=== PATIENT | female | born 1980 | race Caucasian/White ===

== ENCOUNTER 2018-02-17 12:28 | Outpatient (REF) | payer OTHER, SELFPAY ==
[2018-02-17 22:32] LABS: Anion Gap 10.1 mmol/L (3-11); BUN 13 mg/dL (7-18); CO2 25.9 mmol/L (21.0-32.0); CREATININE 0.73 mg/dL (0.55-1.02); Chloride 104 mmol/L (98-107); Glucose 62 mg/dL (70-100); Potassium 4.3 mmol/L (3.5-5.1); Sodium 140 mmol/L (136-145)
== END 2018-02-17 12:48 ==
LOC: NCHCN 12:28
PROVIDERS: Visit Provider Nurse Practitioner Family
DX: Z00.00 Encounter for general adult medical examination without abnormal findings (principal); F41.8 Other specified anxiety disorders; R20.2 Paresthesia of skin; F90.0 Attention-deficit hyperactivity disorder, predominantly inattentive type; M54.2 Cervicalgia; H91.90 Unspecified hearing loss, unspecified ear
CPT/HCPCS: 80048

== ENCOUNTER 2021-01-05 12:41 | Outpatient (REF) | payer BC, SELFPAY ==
[2021-01-05 14:36] LABS: Abs Immature Grans 0.01 10^3/uL (0.0-0.06); Absolute Basophil Count 0.03 10^3/uL (0.0-0.2); Absolute Eosinophil Count 0.13 10^3/uL (0.0-0.7); Absolute Lymphocyte Count 1.61 10^3/uL (1.2-3.4); Absolute Monocyte Count 0.44 10^3/uL (0.1-0.8); Basophils % 0.5; Eosinophils % 2.2; HCT 43.3 % (36.0-46.0); HGB 14.4 g/dL (11.2-15.7); Immature Grans % 0.2; Lymphocytes % 27.2; MCH 30.5 pg (27.0-33.0); MCHC 33.3 % (32.0-36.0); MCV 91.7 fL (80-95); MPV 9.6 fL (8.0-11.0); Monocytes % 7.4; Neutrophils % 62.5; Nucleated RBC 0 %; Platelet Count 274 10^3/uL (130-400); RBC 4.72 10^6/uL (3.93-5.22); RDW 11.7 % (11.7-14.6); RDW-SD 39.3 fL; WBC 5.92 10^3/uL (4.4-10.8)
[2021-01-05 15:09] LABS: Iron 84 ug/dL (50-170); Total Iron Binding Capacity 341 ug/dL (250-450); Transferrin Sat 25 % (15-50)
[2021-01-05 15:22] LABS: ALT 23 U/L (14-59); AST 16 U/L (15-37); Albumin 4.3 g/dL (3.4-5.0); Alkaline Phosphatase 53 U/L (46-116); Anion Gap 9.3 mmol/L (3-11); BUN 13 mg/dL (7-18); Bilirubin, Total 0.4 mg/dL (0.2-1.0); CO2 26.7 mmol/L (21.0-32.0); CREATININE 0.9 mg/dL (0.55-1.02); Calcium 9.3 mg/dL (8.5-10.1); Chloride 105 mmol/L (98-107); Ferritin 18 ng/mL (8-252); Glucose 80 mg/dL (74-106); Potassium 4.2 mmol/L (3.5-5.1); Sodium 141 mmol/L (136-145); TSH (W/Ref FT4) 2.07 uIU/mL (0.36-3.74); Total Protein 7.2 g/dL (6.4-8.2); Vitamin B12 425 pg/mL (193-986)
[2021-01-06 10:08] LABS: Lyme Ab w Rflx to Lyme Confirm Negative (Negative)
[2021-01-06 22:31] LABS: Anaplasma phagocytophilum Negative (Negative); B. miyamotoi PCR Negative (Negative); Babesia divergens/MO-1 Negative (Negative); Babesia duncani Negative (Negative); Babesia microti Negative (Negative); Ehrlichia chaffeensis Negative (Negative); Ehrlichia ewingii/canis Negative (Negative); Ehrlichia muris eauclairensis Negative (Negative)
== END 2021-01-05 12:42 | disposition home or self-care (01) ==
LOC: NCHCN 12:41
PROVIDERS: Visit Provider Nurse Practitioner Family
DX: R53.83 Other fatigue (principal); M54.2 Cervicalgia; F41.8 Other specified anxiety disorders; K30 Functional dyspepsia; J30.2 Other seasonal allergic rhinitis; E16.2 Hypoglycemia, unspecified; R20.2 Paresthesia of skin; F90.0 Attention-deficit hyperactivity disorder, predominantly inattentive type
CPT/HCPCS: 80053; 87798; 82607; 82728; 83540; 83550; 84443; 85025; 86618

== ENCOUNTER 2021-06-05 09:21 | Outpatient (REF) | payer BC, SELFPAY ==
--- NOTE | 2021-06-05 08:45 | PAPFT_PTH ---
PATIENT: Kait Carreon LOC: [facility]#:[id number] AGE/SX: 40/F ROOM: RE06/05/[address]: Cheryl Marte : 1980 BED: DIS: 06/05/2021 SPEC #: [id number] RECD: 06/06/21 12:53 STATUS: CAROLINE REQ #: [id number] EMMANUEL: 06/05/21 08:[address]: Cheryl Marte DEPT: [facility] Cytology RECD BY: Shazia Gorman ENTERED: 06/06/21 12:54 SP TYPE: PAPFT OTHR DR: Gerri Lincoln Tissues: 1 - CX/ENDOCX FOR PAP SMEARS Procedures: PAP THIN PREP/UVM Screening HPV DNA PROBE Comments: [id number] (HPV 16 & 18/45)
== END 2021-06-05 09:22 | disposition home or self-care (01) ==
LOC: NCHCN 09:21
PROVIDERS: Visit Provider Nurse Practitioner Family
DX: Z00.00 Encounter for general adult medical examination without abnormal findings (principal); Z12.4 Encounter for screening for malignant neoplasm of cervix
CPT/HCPCS: 88142; 87624

== ENCOUNTER 2021-07-05 16:34 | Outpatient (REF) | payer BC, SELFPAY ==
--- NOTE | 2021-07-05 13:45 | ENDO_PTH ---
PATIENT: Kait Carreon LOC: [facility] U#:[id number] AGE/SX: 41/F ROOM: RE07/05/[address]: Katerina Arboleda DO : 1980 BED: DIS: 07/05/2021 SPEC #: [id number] RECD: 07/05/21 17:43 STATUS: CAROLINE REQ #: [id number] EMMANUEL: 07/05/21 13:[address]: Katerina Arboleda DEPT: Surgical Specimen RECD BY: Shazia Gorman ENTERED: 07/05/21 17:43 SP TYPE: Endo OTHR DR: Gerri Lincoln Tissues: 1 - ENDOCERVICAL BX/CURRETTE Procedures: GROSS AND MICRO LEVEL 4 Comments: [id number]
== END 2021-07-05 16:35 | disposition home or self-care (01) ==
LOC: LBN 16:34
PROVIDERS: PCP Nurse Practitioner Family; Visit Provider Obstetrics & Gynecology
DX: R87.810 Cervical high risk human papillomavirus (HPV) DNA test positive (principal); N88.8 Other specified noninflammatory disorders of cervix uteri
CPT/HCPCS: 88305

== ENCOUNTER 2022-07-18 06:14 | Day surgery (SDC) | payer OTHER, SELFPAY ==
[2022-07-18 06:34] VITALS: BP 110/71; PULSE 66; RESP 16; TEMP 36.8; O2SAT 97
--- NOTE | 2022-07-18 06:57 | W.ANESPRE ---
General Info Date of Service Date Performed: 07/18/22 Height: 5 ft 8 in Weight: 74.4 kg Body Mass Index (BMI): 24.9 Surgical Procedure: Operation Date: 07/18/22 07:40 Proposed Procedure Side Surgeon p Wrist ECTR Right Alirio Hassan MD Meds Allergies and Home Medications Allergies Allergy/AdvReac Type Severity Reaction Status Date / Time amoxicillin Allergy Mild Verified 07/18/22 06:42 penicillin V Allergy Mild Verified 07/18/22 06:42 Home Medication Medication Instructions Recorded cetirizine 10 mg capsule (Zyrtec) 10 mg PO DAILY 07/15/17 methylphenidate HCl 20 mg biphasic 20 mg PO DAILY 07/15/17 50-50 capsule,extended release bupropion HCl 150 mg tablet,12 hr 150 mg PO DAILY 07/05/21 sustained-release (Wellbutrin SR) acetylcysteine 600 mg tablet (NAC) 600 mg PO BID 05/02/22 omeprazole 20 mg capsule,delayed 20 mg PO DAILY 05/02/22 release cyclobenzaprine 5 mg tablet 5 mg PO TID PRN 05/09/22 fluticasone propionate 50 100 mcg NS DAILY PRN nasal 05/09/22 mcg/actuation nasal congestion spray,suspension acetaminophen 500 mg tablet 1,000 mg PO TID #90 tabs 07/18/22 hydrocodone 5 mg-acetaminophen 325 1 tab PO Q6H PRN pain #4 tabs 07/18/22 mg tablet ibuprofen 600 mg tablet 600 mg PO TID PRN pain #90 tabs 07/18/22 Current Visit Medications: Current Medications Generic Name Dose Route Start Last Admin Trade Name Freq PRN Reason Stop Dose Admin Ringer's Solution 1,000 mls @ 80 mls/hr 07/18/22 06:00 IV 07/18/22 23:59 INFUSION BHAVIK Cefazolin Sodium/Dextrose 2 gm in 50 mls @ 100 mls/hr 07/18/22 06:00 Ancef Duplex IVPB 07/18/22 23:59 PREOP BHAVIK IV Miscellaneous Supplies 1 each 07/18/22 06:00 Iv Access IV 07/18/22 23:59 DIRECTED BHAVIK Sodium Chloride 0 ml 07/18/22 06:00 Normal Saline Flush 10 Ml Syr IV 07/18/22 23:59 PRN PRN Sodium Chloride 0 ml 07/18/22 06:00 Normal Saline 10 Ml Vial IJ 07/18/22 23:59 DIRECTED PRN Sterile Water 0 ml 07/18/22 06:00 Water,Injection,Sterile 10 Ml Vial IJ 07/18/22 23:59 DIRECTED PRN PFSH Active Problems Active Problems: Problem Status Onset Code Cervical high risk human papillomavirus (HPV) DNA test positive R87.810 Vulvar irritation N90.89 Right carpal tunnel syndrome G56.01 Left carpal tunnel syndrome G56.02 Medical History Medical History Acute stress disorder ADD (attention deficit disorder) Anxiety Anxiety with depression Attention deficit disorder predominant inattentive type Carpal tunnel syndrome Dental caries Depression Dyspepsia Eye muscle twitches Fatigue Hearing loss History of HPV infection History of neck pain Hx of traumatic brain injury Per pt states it was a concussion 2019. Hypoglycemia Multiple joint pain Neck pain Seasonal allergies Stress incontinence Tobacco Smoking/Tobacco Use Status: Never Alcohol Alcohol Intake: current Alcohol intake frequency: 0-2 drinks per day Details: says she hasn't drank in 3 weeks ago Substance Use Substance use: Never Substance use type: does not use Prental History History 0 Para Hx # Term Pregnancies Multiple births Hx # Pregnancies Ectopic pregnancies AB induced Hx Number of Living Children AB spontaneous Vital Signs and Lab Results Vital Signs Most Recent Vital Signs in EMR: Most Recent Vital Signs Temp Pulse Resp BP Pulse Ox 36.8 C 66 16 110/71 97 07/18/22 06:34 07/18/22 06:34 07/18/22 06:34 07/18/22 06:34 07/18/22 06:34 Point of Care Results Point of Care Results: POC- Test(urine) Negative 07/18/22 06:49 Lab Results Blood Type / Crossmatch: No Data to Display Complete Blood Count: No Data to Display Complete Metabolic Panel: No Data to Display Liver Function Panel: No Data to Display Coagulation Panel: No Data to Display Cardiac Panel: No Data to Display Arterial Blood Gas: No Data to Display Venous Blood Gas: No Data to Display Pancreas Panel: No Data to Display Thyroid Panel: No Data to Display Infectious Disease: No Data to Display Blood Cultures: No Data to Display Toxicology Panel: No Data to Display Panel: No Data to Display Anesthesia Assessment and Plan Anesthesia History Personal History: No History of Anesthesia Complications Family History: Family History Unknown Exercise Tolerance Exercise Tolerance: Metabolic Equivalents>4 Pertinent Negatives Pertinent Negatives: No Symptoms of GERD, No Major Cardiovascular Symptoms or Complaints and No Major Pulmonary Symptoms or Complaints Cardiac & Pulmonary Exam Cardiac Exam: Normal S1/S2 Heart Sounds Pulmonary Exam: Clear Bilateral Breath Sounds Implantable Cardiac Device Does patient have a Pacemaker or an ICD?: No Airway Exam Known Difficult Airway: No Mallampati Class: 1 Mouth Opening: Normal (> 3cm) Thyromental Distance: Greater than 3 cm Neck Range of Motion: Full ROM Neck Circumference: Normal Teeth Condition: Normal Dentition ASA Classification ASA Score: ASA 2 Emergency Case?: No NPO Status NPO Status: NPO Clears >2 hours, Solids >8 hours Status Status: Negative HCG Anesthesia Plan Resuscitation Status: Full Code Anesthesia Technique: General Anesthesia Airway Planned: Natural Airway Monitors Used: Standard Monitors
--- NOTE | 2022-07-18 07:12 | PDOC.DSDIS_ITS ---
Date of service: 07/18/22 Time of Service: 07:12 Discharge Plan Disposition Patient Disposition: Home Condition: Good Discharge Details Reason For Visit: R ECTR Attending Provider: Alirio Hassan Primary Care Provider: Cheryl Marte Home Meds and New Rx's Prescriptions: New acetaminophen 500 mg tablet 1,000 mg PO TID Qty: 90 0RF hydrocodone-acetaminophen 5-325 mg tablet 1 tab PO Q6H PRN (Reason: pain) Qty: 4 0RF ibuprofen 600 mg tablet 600 mg PO TID PRN (Reason: pain) Qty: 90 0RF Continued bupropion HCl [Wellbutrin SR] 150 mg tablet sustained-release 12 hr 150 mg PO DAILY methylphenidate HCl 20 MG capsule,ER biphasic 50-50 20 mg PO DAILY Zyrtec 10 MG capsule 10 mg PO DAILY omeprazole 20 mg capsule,delayed release(DR/EC) 20 mg PO DAILY NAC 600 mg tablet 600 mg PO BID cyclobenzaprine 5 mg tablet 5 mg PO TID PRN fluticasone propionate 50 mcg/actuation spray,suspension 100 mcg NS DAILY PRN (Reason: nasal congestion) Discharge Instructions Stand Alone Forms: Mo Hyman Tunnel Release Referrals: Alirio Hassan MD [ [facility] STAFF PHYSICIAN] - Activity:: Activity as Tolerated Remove Dressings/Wound Care:: 48 hours Shower/Bathe:: 48 hours Diet:: As Tolerated Discharge Orders Discharge Orders: Discharge Order (Routine); Ordered 07/18/22 Ordered By: Marino Bui DS: Diagnosis Discharge Diagnosis (1) Right carpal tunnel syndrome: Status: Acute
[2022-07-18 07:17] VITALS: BMI 24.9
[2022-07-18] MEDS: Lactated Ringers 1,000 ML 80 ML IV (07:18)
[2022-07-18] MEDS: ceFAZolin 2 GM/50 ML BAG IVPB (07:29)
[2022-07-18] MEDS: Lidocaine 1% Pres-Free W/EPI 1/200,000 10 ML VIAL (07:38)
--- NOTE | 2022-07-18 07:45 | W.PM.OP ---
Date of service: 07/18/22 Time of Service: 07:46 Operative Note Operative Note DATE OF PROCEDURE: 07/18/22 PRE-OP DIAGNOSIS: Right Carpal Tunnel Syndrome POST-OP DIAGNOSIS: same PROCEDURE: Right Endoscopic Carpal Tunnel Release SURGEON: Alirio Hassan ANESTHESIA TYPE: General:No Airway Refer to Anesthesia Record ESTIMATED BLOOD LOSS: 0 PATHOLOGY: none sent TOURNIQUET TIME: 5 COMPLICATIONS: None Patient was transported to: same day Patient's condition: stable Indications: I have seen Kait in clinic for symptoms of carpal tunnel syndrome. The numbness, tingling, and pain limited function. Clinical exam findings with nerve conduction tests confirmed the diagnosis of carpal tunnel syndrome. Nonoperative measures such as bracing, time, activity modifications had been tried but disability and pain persisted. I discussed carpal tunnel release with the patient. I reviewed the risks of the procedure to include, but not limited to, bleeding, infection, pain, stiffness, incomplete release, damage to nerves or vessels, persistent numbness, recurrence. Despite these risks, the patient elected to proceed. Findings: There was tightened carpal tunnel. This was dilated and released successfully with the endoscopic with increased space within the tunnel. The antebrachial fascia was released proximally freeing the median nerve at the wrist. Procedure Description: Kait was greeted in the preoperative holding area where the correct side was identified and marked. The consent was reviewed with the patient and signed. The history and physical was updated. All questions were answered. She was taken back to the operating room. The patient was placed into the supine position on the operating room table with the right arm on an arm board. A nonsterile tourniquet was placed high onto the arm. All bony prominences were well padded. Prophylactic antibiotics in the form of Cefazolin were administered. The right arm was then prepped with Chloraprep and draped in a standard fashion with stockinette and extremity drape. A timeout to confirm correct identity, side and site, procedure, allergies, anesthesia, and medical concerns was performed. The surgical site was marked in the volar wrist creases in line with the radial border of the fourth ray. This area was anesthetized with approximately 6cc of 1% Lidocaine. The limb was then exsanguinated with an Esmarch. The skin was incised with a 15 blade, approximately 1cm. The skin only was cut and the deeper tissue was dissected bluntly with a tenotomy scissor, avoiding passing nerve and venous structures. The fascia was penetrated and opened bluntly. A two-prong skin hook was placed under this proximal fascial edge. A series of hamate finders were used to identify and dilate the carpal tunnel. Synovial elevator was used to free synovial attachments to the underside of the transverse carpal ligament. My thumb was kept in the palm to cecilio the distal extent of the carpal tunnel and correctly position the hand. The Microaire endoscope was inserted without difficulty and without resistance. Excellent visualization showed horizontally running fibers of the transverse carpal ligament (TCL). The distal extent of the TCL was visualized and the end of the scope palpated with the thumb. The blade was elevated and withdrawn from distal to proximal. The TCL was split into two flaps. The endoscope was reinserted to confirm complete release and any remnant ligament was incised. The scope was withdrawn and the proximal aspect of the carpal tunnel was grossly inspected and appeared release with the median nerve visible. The antebrachial fascia at the level of the wrist was then freed from the overlying skin and then the underlying median nerve with blunt dissection. This was transected longitudinally for about 3cm proximal to the wrist incision. The wound was then irrigated with easy flow of irrigant distally and proximally. The incision was closed with a single 4-0 Nylon suture. The wound was dressed with Xeroform, Gauze, Kerlix and Chuy. The tourniquet was deflated with the initial dressing and held with some pressure. Blood flow returned easily to all digits with capillary refill less than 2 seconds. The patient tolerated the procedure well and was returned to the Same Day Surgery area in a stable condition suffering no known complication.
[2022-07-18 07:49] VITALS: BP 110/71; PULSE 66; RESP 16; TEMP 36; O2SAT 97
[2022-07-18 08:19] VITALS: BP 131/88; PULSE 64; RESP 16; TEMP 36.2; O2SAT 99
--- NOTE | 2022-07-18 08:43 | W.ANESPOSTOP ---
Postoperative Evaluation Date, Time and Location Date Performed: 07/18/22 Time Performed: 08:20 Patient Location: Day Surgery Unit Vital Signs Most Recent Imported Vital Signs: Most Recent Vital Signs Temp Pulse Resp BP Pulse Ox 36.2 C L 64 16 131/88 99 07/18/22 08:19 07/18/22 08:19 07/18/22 08:19 07/18/22 08:19 07/18/22 08:19 Pain Score Most Recent Pain Score: Most Recent Pain Score Pain Level 0 07/18/22 08:19 Assessment Mental Status: Awake (Alert & Oriented to Patient Baseline) Airway and Respiratory Function: Patent airway with normal (patient baseline) respiratory exam Cardiovascular Function: Hemodynamically Stable Hydration Status: Adequately Hydrated Nausea & Vomiting: No Nausea or Vomiting Pain: Pt. Denies Any Pain Peripheral Nerve Block: Patient did not receive a nerve block
== END 2022-07-18 08:50 | disposition home or self-care (01) ==
PROVIDERS: PCP Nurse Practitioner Family; Visit Provider Student in an Organized Health Care Education/Training Program
PROC: 01N54ZZ Release Median Nerve, Percutaneous Endoscopic Approach (ICD-10-PCS; CPT 29848; principal; 2022-07-18 07:30)
DX: G56.01 Carpal tunnel syndrome, right upper limb (principal)
CPT/HCPCS: 29848; 81025; J0690; J2250; J2704; J3010

== ENCOUNTER 2022-07-23 14:19 | Outpatient (REF) | payer OTHER, SELFPAY ==
--- NOTE | 2022-07-23 11:45 | PAPFT_PTH ---
PATIENT: Kait Carreon LOC: [facility]#:[id number] AGE/SX: 42/F ROOM: RE07/23/[address]: Cheryl Marte : 1980 BED: DIS: 07/23/2022 SPEC #: [id number] RECD: 07/23/22 18:21 STATUS: CAROLINE REQ #: [id number] EMMANUEL: 07/23/22 11:[address]: Cheryl Marte DEPT: [facility] Cytology RECD BY: Shazia Gorman Tissues: 1 - CX/ENDOCX FOR PAP SMEARS Procedures: PAP THIN PREP/UVM Screening HPV DNA PROBE Comments: [id number] (HPV 16 & 18/45)
[2022-07-23 15:16] LABS: Calculated LDL 136 mg/dL (<100); Cholesterol 222 mg/dL (<200); HDL Cholesterol 69 mg/dL (40-60); Triglyceride 87 mg/dL (<150)
[2022-07-24 10:15] LABS: HIV-1/2 Ag & Ab Screen Negative (Negative)
[2022-07-24 11:58] LABS: Hepatitis C Ab w Rflx HCV PCR Negative (Negative)
== END 2022-07-23 14:20 | disposition home or self-care (01) ==
LOC: NCHCN 14:19
PROVIDERS: PCP Nurse Practitioner Family; Visit Provider Nurse Practitioner Family
DX: Z00.00 Encounter for general adult medical examination without abnormal findings (principal); Z11.59 Encounter for screening for other viral diseases; Z11.4 Encounter for screening for human immunodeficiency virus [HIV]; Z13.220 Encounter for screening for lipoid disorders; Z12.4 Encounter for screening for malignant neoplasm of cervix; R87.610 Atypical squamous cells of undetermined significance on cytologic smear of cervix (ASC-US); Z11.51 Encounter for screening for human papillomavirus (HPV); R87.810 Cervical high risk human papillomavirus (HPV) DNA test positive
CPT/HCPCS: 80061; 86803; 87389; 88142; 87624

== ENCOUNTER 2022-09-03 10:13 | Outpatient (REF) | payer OTHER, SELFPAY ==
--- NOTE | 2022-09-03 09:30 | ENDO_PTH ---
PATIENT: Kait Carreon LOC: [facility]#:[id number] AGE/SX: 42/F ROOM: RE09/03/[address]: Araseli Velasquez : 1980 BED: DIS: 09/03/2022 SPEC #: [id number] RECD: 09/03/22 12:30 STATUS: CAROLINE REMickie #: [id number] EMMANUEL: 09/03/22 09:[address]: Araseli Velasquez DEPT: Surgical Specimen RECD BY: Shazia Gorman ENTERED: 09/03/22 12:30 SP TYPE: Endo OTHR DR: Cheryl Marte Tissues: 1 - ENDOCERVICAL BX/CURRETTE Procedures: GROSS AND MICRO LEVEL 4 IMMUNOPEROXIDASE STAIN Comments: [id number]
[2022-09-05 12:14] LABS: Chlamydia Result Negative (Negative); GC Result Negative (Negative)
== END 2022-09-03 10:14 | disposition home or self-care (01) ==
LOC: LBN 10:13
PROVIDERS: PCP Nurse Practitioner Family; Visit Provider Obstetrics & Gynecology Gynecology
DX: Z11.3 Encounter for screening for infections with a predominantly sexual mode of transmission (principal); N87.1 Moderate cervical dysplasia; R87.810 Cervical high risk human papillomavirus (HPV) DNA test positive
CPT/HCPCS: 87491; 87591; 88305; 88361

== ENCOUNTER 2022-10-11 16:00 | Outpatient (REF) | payer OTHER, SELFPAY ==
--- NOTE | 2022-10-11 13:35 | CER_PTH ---
PATIENT: Kait Carreon LOC: [facility] U#:[id number] AGE/SX: 42/F ROOM: RE10/11/[address]: Araseli Velasquez : 1980 BED: DIS: 10/11/2022 SPEC #: [id number] RECD: 10/11/22 18:25 STATUS: CAROLINE REQ #: [id number] EMMANUEL: 10/11/22 13:[address]: Araseli Velasquez DEPT: Surgical Specimen RECD BY: Shazia Gorman ENTERED: 10/11/22 18:26 SP TYPE: CER OTHR DR: Cheryl Marte Tissues: 1 - CERVICAL BIOPSY 2 - CERVICAL BIOPSY 3 - CERVICAL BIOPSY Procedures: GROSS AND MICRO LEVEL 5 Comments: [id number]
== END 2022-10-11 16:01 | disposition home or self-care (01) ==
LOC: LBN 16:00
PROVIDERS: PCP Nurse Practitioner Family; Visit Provider Obstetrics & Gynecology Gynecology
DX: R87.613 High grade squamous intraepithelial lesion on cytologic smear of cervix (HGSIL) (principal); Z12.4 Encounter for screening for malignant neoplasm of cervix
CPT/HCPCS: 88305; 88307

== ENCOUNTER → 2022-11-06 03:01 | Outpatient (CLI) | payer OTHER, SELFPAY ==
--- NOTE | 2022-11-06 | DI.MAMMO_ITS ---
Exam(s) MAMMO SCREENING EXAM: MAMMO SCREENING CLINICAL HISTORY: BASELINE, SCREENING, FAMILY H/O BREAST CA, Z12.31, Z80.3. TECHNIQUE: Bilateral full field digital CC and MLO mammographic images were obtained with 3D tomosyn thesis and utilizing computer aided detection (CAD). COMPARISON: . This is a baseline mammogram on 42-year-old patient with significant family history FINDINGS: Fibroglandular tissue pattern is moderately dense. There are no CAD designations. There are no new spiculated masses nor malignant appearing microcalcification groups. There is no significant architectural distortion nor skin thickening-retraction. IMPRESSION: No radiographic evidence of malignancy. BI-RADS Category 1 - Negative Breast Density - Category C - Heterogeneously dense Breast density Category C or D implies that the patient has dense breast tissue. Dense breast tissue can make it harder to find cancer on a mammogram. Dense breast tissue is also associated with an incr eased risk of breast cancer. This information about the result of the mammogram report was provided to the patient to raise their awareness. Use this report when you speak with the patient about their risks for breast cancer, which includes their family history. At that time, you may recommend additional screening tests (Ultrasoun d or MRI) as these tests may add significant information. A negative radiographic report should not delay biopsy if a dominant or clinically suspicious mass is present. Up to ten percent of cancers are not identified on mammography. A negative report may reinforce clinical impression. Adenosis and dense breasts may obscure an underlying neoplasm. False positive reports average 6 to 10%. Patient will receive a letter notifying them of these results.
== END ==
PROVIDERS: PCP Nurse Practitioner Family; Visit Provider Nurse Practitioner Family
DX: Z12.31 Encounter for screening mammogram for malignant neoplasm of breast (principal); Z80.3 Family history of malignant neoplasm of breast
CPT/HCPCS: 77063; 77067

== ENCOUNTER 2023-10-07 15:45 | Outpatient (REF) | payer BC, SELFPAY ==
--- NOTE | 2023-10-07 16:00 | PAPFT_PTH ---
PATIENT: Kait Carreon LOC: [facility]#:[id number] AGE/SX: 43/F ROOM: RE10/07/[address]: Araseli Velasquez : 1980 BED: DIS: 10/07/2023 SPEC #: [id number] RECD: 10/07/23 18:37 STATUS: CAROLINE REQ #: [id number] EMMANUEL: 10/07/23 16:[address]: Araseli Velasquez DEPT: [facility] Cytology RECD BY: Shazia Gorman ENTERED: 10/07/23 18:37 SP TYPE: PAPFT OTHR DR: Cheryl Marte Tissues: 1 - CX/ENDOCX FOR PAP SMEARS Procedures: PAP THIN PREP/UVM Screening HPV DNA PROBE Comments: [id number] (HPV 16 & 18/45)
== END 2023-10-07 15:46 | disposition home or self-care (01) ==
LOC: LBN 15:45
PROVIDERS: PCP Nurse Practitioner Family; Visit Provider Obstetrics & Gynecology Gynecology
DX: Z01.419 Encounter for gynecological examination (general) (routine) without abnormal findings (principal)
CPT/HCPCS: 88142; 87624

== ENCOUNTER 2024-01-29 01:04 | Outpatient (CLI) | payer BC, SELFPAY ==
--- NOTE | 2024-01-29 15:20 | DI.MAMMO_ITS ---
Exam(s) MAMMO SCREENING EXAM: MAMMO SCREENING CLINICAL HISTORY: Screening, family h/o malignant neoplasm of breast, Z80.3 TECHNIQUE: Mammograms were interpreted according to the usual protocol including computer analysis w ith CAD system, tomosynthesis and C-view imaging. COMPARISON: 2022 FINDINGS: The breasts are composed of heterogeneously dense fibroglandular densities, Breast Density category C . No suspicious masses or suspicious microcalcifications are seen. No skin thickening or abnormal axillary lymph nodes are seen. There has been no significant change from prior exams. IMPRESSION: BI-RADS Category 1, Negative mammogram. Yearly screening mammography is recommended. Breast Density Category C, heterogeneously Dense. The mammogram demonstrates the patient's breast tissue is dense. Dense breast tissue is very common a nd is not abnormal but dense breast tissue can make it harder to find cancer on a mammogram. Also, de nse breast tissue may increase breast cancer risk. This information about the result of the mammogram report was provided to the patient to raise their awareness. Use this report when you speak with the patient about their risks for breast cancer, which includes their family history. At that time, you may recommend additional screening tests (Ultrasound or MRI) as they might be useful based on their r isk. A negative radiographic report should not delay biopsy if a dominant or clinically suspicious mass is present. Up to ten percent of cancers are not identified on mammography. A negative report may reinforce clinical impression. Adenosis and dense breasts may obscure an underlying neoplasm. False positive reports average 6 to 10%.
== END 2024-01-29 01:24 ==
LOC: DI 01:04
PROVIDERS: PCP Nurse Practitioner Family; Visit Provider Nurse Practitioner Family
DX: Z12.31 Encounter for screening mammogram for malignant neoplasm of breast (principal); Z80.3 Family history of malignant neoplasm of breast; R92.333 Mammographic heterogeneous density, bilateral breasts; R92.323 Mammographic fibroglandular density, bilateral breasts
CPT/HCPCS: 77063; 77067

== ENCOUNTER 2024-02-04 06:15 | Day surgery (SDC) | payer BC, SELFPAY ==
[2024-02-04 06:27] VITALS: BP 114/71; PULSE 73; RESP 16; TEMP 36.5; O2SAT 98
--- NOTE | 2024-02-04 06:46 | W.ANESPRE ---
General Info Date of Service Date Performed: 02/04/24 Height: 5 ft 8 in Weight: 79.3 kg Body Mass Index (BMI): 26.6 Surgical Procedure: Operation Date: 02/04/24 07:40 Proposed Procedure Side Surgeon p Wrist ECTR Left Alirio Hassan MD Actual Procedure Side Surgeon p Wrist ECTR Left Alirio Hassan MD Pre-Op Diagnosis Post-Op Diagnosis Left carpal tunnel syndrome Meds Allergies and Home Medications Allergies Allergy/AdvReac Type Severity Reaction Status Date / Time amoxicillin Allergy Mild unknown Verified 02/04/24 06:39 penicillin V Allergy Mild unknown Verified 02/04/24 06:39 Home Medication ?Medication ?Instructions ?Recorded cetirizine 10 mg capsule (Zyrtec) 10 mg PO DAILY 07/15/17 methylphenidate HCl 20 mg biphasic 20 mg PO DAILY 07/15/17 50-50 capsule,extended release bupropion HCl 150 mg tablet,12 hr 150 mg PO DAILY 07/05/21 sustained-release (Wellbutrin SR) cyclobenzaprine 5 mg tablet 5 mg PO TID PRN 05/09/22 fluticasone propionate 50 100 mcg NS DAILY PRN nasal 05/09/22 mcg/actuation nasal congestion spray,suspension ibuprofen 600 mg tablet 600 mg PO TID PRN pain #90 tabs 07/18/22 levonorgestrel 21 mcg/24 hr (up to 1 device intrauterine ONCE 09/03/22 8 years) 52 mg intrauterine device (Mirena) omeprazole 20 mg capsule,delayed 20 mg PO DAILY PRN 10/07/23 release sertraline 25 mg tablet 25 mg PO DAILY 01/31/24 Current Visit Medications: Current Medications Generic Name Dose Route Start Last Admin Trade Name Freq PRN Reason Stop Dose Admin Ringer's Solution 1,000 mls @ 80 mls/hr 02/04/24 06:00 IV 02/04/24 23:59 INFUSION BHAVIK IV Miscellaneous Supplies 1 each 02/04/24 06:00 Iv Access IV 02/04/24 23:59 DIRECTED BHAVIK Sodium Chloride 0 ml 02/04/24 06:00 Normal Saline Flush 10 Ml Syr IV 02/04/24 23:59 PRN PRN Sodium Chloride 0 ml 02/04/24 06:00 Normal Saline 10 Ml Vial IJ 02/04/24 23:59 DIRECTED PRN Sterile Water 0 ml 02/04/24 06:00 Water,Injection,Sterile 10 Ml Vial IJ 02/04/24 23:59 DIRECTED PRN PFSH Active Problems Active Problems: Problem Status Onset Code IUD (intrauterine device) in place Acute Z97.5 Blood in stool Acute K92.1 JASON II (cervical intraepithelial neoplasia II) Acute N87.1 Cervical high risk human papillomavirus (HPV) DNA test positive Acute R87.810 Vulvar irritation Acute N90.89 Left carpal tunnel syndrome Acute G56.02 Medical History Medical History Hx of traumatic brain injury Per pt states it was a concussion 2018. History of neck pain Anxiety with depression ADD (attention deficit disorder) Acute stress disorder Hearing loss Hypoglycemia Seasonal allergies Dyspepsia Carpal tunnel syndrome Fatigue Dental caries Stress incontinence Multiple joint pain History of HPV infection Eye muscle twitches Neck pain Depression Anxiety Attention deficit disorder predominant inattentive type Surgical History Surgical History (Updated 02/04/24 @ 06:40 by Vilma Robison RN) Hx of arthroscopy of knee Right carpal tunnel syndrome S/P R ECTR: 07/18/2022 Tobacco Smoking/Tobacco Use Status: Never Passive smoking exposure: No Alcohol Alcohol Intake: current Alcohol intake frequency: 0-2 drinks per day Details: says she hasn't drank in 3 weeks ago Substance Use Substance use: Never Substance use type: does not use Prental History History 0 Para Hx # Term Pregnancies Multiple births Hx # Pregnancies Ectopic pregnancies AB induced Hx Number of Living Children AB spontaneous Vital Signs and Lab Results Vital Signs Most Recent Vital Signs in EMR: Most Recent Vital Signs Temp Pulse Resp BP Pulse Ox 36.5 C 73 16 114/71 98 02/04/24 06:27 02/04/24 06:27 02/04/24 06:27 02/04/24 06:27 02/04/24 06:27 Point of Care Results Point of Care Results: POC- Test(urine) Negative 02/04/24 06:42 Lab Results Blood Type / Crossmatch: No Data to Display Complete Blood Count: No Data to Display Complete Metabolic Panel: No Data to Display Liver Function Panel: No Data to Display Coagulation Panel: No Data to Display Cardiac Panel: No Data to Display Arterial Blood Gas: No Data to Display Venous Blood Gas: No Data to Display Pancreas Panel: No Data to Display Thyroid Panel: No Data to Display Infectious Disease: No Data to Display Blood Cultures: No Data to Display Toxicology Panel: No Data to Display Panel: No Data to Display Anesthesia Assessment and Plan Anesthesia History Personal History: No History of Anesthesia Complications Family History: No Family History of Anesthesia Complications Exercise Tolerance Exercise Tolerance: Metabolic Equivalents>4 Pertinent Negatives Pertinent Negatives: No Symptoms of GERD, No Major Cardiovascular Symptoms or Complaints, No Major Pulmonary Symptoms or Complaints and No History of CVA/TIA Cardiac & Pulmonary Exam Cardiac Exam: Normal S1/S2 Heart Sounds Pulmonary Exam: Clear Bilateral Breath Sounds Implantable Cardiac Device Does patient have a Pacemaker or an ICD?: No Airway Exam Known Difficult Airway: No Mallampati Class: 2 Mouth Opening: Normal (> 3cm) Thyromental Distance: Greater than 3 cm Neck Range of Motion: Full ROM Neck Circumference: Normal Teeth Condition: Normal Dentition ASA Classification ASA Score: ASA 2 Emergency Case?: No NPO Status NPO Status: NPO Clears >2 hours, Solids >8 hours Status Status: Negative HCG Anesthesia Plan Resuscitation Status: Full Code Anesthesia Technique: General Anesthesia Airway Planned: Natural Airway Monitors Used: Standard Monitors
--- NOTE | 2024-02-04 07:18 | W.PM.DSUDISC ---
Date of service: 02/04/24 Time of Service: 07:20 Discharge Plan Disposition Patient Disposition: Home Condition: Good Discharge Details Reason For Visit: Left carpal tunnel syndrome Attending Provider: Alirio Hassan Primary Care Provider: Cheryl Marte Home Meds and New Rx's Prescriptions: New hydrocodone-acetaminophen 5-325 mg tablet 1 tab PO Q6H PRN (Reason: severe pain) Qty: 4 0RF Rx Instructions: Take one tablet up to every 6 hours as needed for severe postoperative pain Continued Mirena 21 mcg/24 hours (8 yrs) 52 mg intrauterine device 1 device intrauterine ONCE Rx Instructions: as a single dose bupropion HCl [Wellbutrin SR] 150 mg tablet sustained-release 12 hr 150 mg PO DAILY methylphenidate HCl 20 MG capsule,ER biphasic 50-50 20 mg PO DAILY Zyrtec 10 MG capsule 10 mg PO DAILY cyclobenzaprine 5 mg tablet 5 mg PO TID PRN fluticasone propionate 50 mcg/actuation spray,suspension 100 mcg NS DAILY PRN (Reason: nasal congestion) omeprazole 20 mg capsule,delayed release(DR/EC) 20 mg PO DAILY PRN ibuprofen 600 mg tablet 600 mg PO TID PRN (Reason: pain) Qty: 90 0RF sertraline 25 mg tablet 25 mg PO DAILY Discharge Instructions Stand Alone Forms: Anesthesia Discharge Inst., Bri Hamilton ([facility]), Mo Hyman Tunnel Release Referrals: Alirio Hassan MD [ [facility] STAFF PHYSICIAN] - 02/17/24 8:15 am Activity:: Activity as Tolerated Remove Dressings/Wound Care:: 48 hours Shower/Bathe:: 48 hours Diet:: As Tolerated Discharge Orders Discharge Orders: Discharge Order (Routine); Ordered 02/04/24 Ordered By: Milana Dias
[2024-02-04] MEDS: Cephalexin 500 MG CAP 1000 MG PO (07:25)
[2024-02-04] MEDS: Celecoxib 200 MG CAP PO (07:25)
[2024-02-04] MEDS: Lidocaine 1% Multi-Dose W/EPI 1/100,000 50 ML VIAL (07:42)
[2024-02-04] MEDS: Sodium Bicarbonate 50 MEQ/50 ML VIAL (07:43)
[2024-02-04 08:05] VITALS: BP 111/72; PULSE 61; RESP 16; TEMP 36.4; O2SAT 99
--- NOTE | 2024-02-04 09:01 | ROE_ITS ---
Operative Note Operative Note PRE-OP DIAGNOSIS: Left Carpal Tunnel Syndrome POST-OP DIAGNOSIS: same PROCEDURE: Left Endoscopic Carpal Tunnel Release SURGEON: Alirio Hassan ANESTHESIA TYPE: Local By Surgeon Refer to Anesthesia Record ESTIMATED BLOOD LOSS: 0 PATHOLOGY: none sent TOURNIQUET TIME: 10 COMPLICATIONS: None Patient was transported to: same day Patient's condition: stable Indications: I have seen Kait in clinic for symptoms of carpal tunnel syndrome. The numbness, tingling, and pain limited function. Clinical exam findings confirmed the diagnosis of carpal tunnel syndrome. Nonoperative measures such as bracing, time, activity modifications had been tried but disability and pain persisted. She had a successful carpal tunnel release on the right side last year. I discussed carpal tunnel release with the patient. I reviewed the risks of the procedure to include, but not limited to, bleeding, infection, pain, stiffness, incomplete release, damage to nerves or vessels, persistent numbness, recurrence. Despite these risks, the patient elected to proceed. Findings: There was tightened carpal tunnel. This was dilated and released successfully with the endoscopic with increased space within the tunnel. The antebrachial fascia was released proximally freeing the median nerve at the wrist. Procedure Description: Kait was greeted in the preoperative holding area where the correct side was identified and marked. The consent was reviewed with the patient and signed. The history and physical was updated. All questions were answered. She was taken back to the operating room. The patient was placed into the supine position on the operating room table with the left arm on an arm board. A nonsterile tourniquet was placed high onto the arm. All bony prominences were well padded. Prophylactic antibiotics in the form of Cephalexin were administered. The left arm was then prepped with Chloraprep and draped in a standard fashion with stockinette and extremity drape. A timeout to confirm correct identity, side and site, procedure, allergies, anesthesia, and medical concerns was performed. The surgical site was marked in the volar wrist creases in line with the radial border of the fourth ray. This area was anesthetized with 1% Lidocaine with epinephrine, buffered with sodium bicarbonate. Once the anesthetic had set up, confirmed by examination the limb was then exsanguinated with an Esmarch and the tourniquet was inflated. The skin was incised with a 15 blade, approximately 1cm. The skin only was cut and the deeper tissue was dissected bluntly with a tenotomy scissor, avoiding passing nerve and venous structures. The fascia was penetrated and opened bluntly. A two-prong skin hook was placed under this proximal fascial edge. A series of hamate finders were used to identify and dilate the carpal tunnel. Synovial elevator was used to free synovial attachments to the underside of the transverse carpal ligament. My thumb was kept in the palm to cecilio the distal extent of the carpal tunnel and correctly position the hand. The carpal tunnel was quite tight. In order to increase viewing ability and decrease pressure, I released the proximal half of the carpal tunnel. This allowed increase maneuverability of the scope but unfortu nately did allow some fat to drop into the carpal tunnel which made distal visualization much more challenging. Eventually, I was able to identify the remainder of the horizontally running fibers of the transverse carpal ligament (TCL). The distal extent of the TCL was visualized and the end of the scope palpated with the thumb. The blade was elevated and withdrawn from distal to proximal. The TCL was split into two flaps. The scope was withdrawn and the proximal aspect of the carpal tunnel was grossly inspected and appeared released. This was also confirmed by inserting a small hemostat into the carpal tunnel. The antebrachial fascia at the level of the wrist was then freed from the overlying skin and then the underlying median nerve with blunt dissection. This was transected longitudinally for about 3cm proximal to the wrist incision. The wound was then irrigated with easy flow of irrigant distally and proximally. The incision was closed with a single 4-0 Nylon suture. The wound was dressed with Xeroform, Gauze, Kerlix and Chuy. The tourniquet was deflated with the initial dressing and held with some pressure. Blood flow returned easily to all digits with capillary refill less than 2 seconds. The patient tolerated the procedure well and was returned to the Same Day Surgery area in a stable condition suffering no known complication. Date of Procedure: 02/04/24
== END 2024-02-04 08:30 | disposition home or self-care (01) ==
PROVIDERS: PCP Nurse Practitioner Family; Visit Provider Student in an Organized Health Care Education/Training Program
PROC: 01N54ZZ Release Median Nerve, Percutaneous Endoscopic Approach (ICD-10-PCS; CPT 29848; principal; 2024-02-04 07:30)
DX: G56.02 Carpal tunnel syndrome, left upper limb (principal)
CPT/HCPCS: 29848; 81025; J2003; J2004; J2704

== ENCOUNTER 2024-05-06 02:06 | Outpatient (CLI) | payer OTHER, SELFPAY ==
--- NOTE | 2024-05-06 | DI.MRI_ITS ---
Exam(s) MR CERVICAL SPINE WO EXAM: MR CERVICAL SPINE WO CLINICAL HISTORY: Cervicalgia, M54.2; arthropathy, M12.9;pain in unspecified shoulder,M25.519 TECHNIQUE: Multiplanar multisequence MRI of the cervical spine was performed without intravenous con trast. COMPARISON: MR MRI - CERVICAL SPINE WO CONT from 07/01/2017 FINDINGS: CERVICOMEDULLARY JUNCTION: Intact with no evidence of cerebellar tonsillar ectopia. No obvious abnor mality of the odontoid process. No evidence of Chiari 1 malformation. CERVICAL SPINAL CORD: There is no abnormal signal in the cervical spinal cord and no evidence of foca l cord atrophy nor focal cord swelling. OSSEOUS:There are no cervical fractures evident. No significant osseous lesions in the cervical vert ebrae. There is straightening and mild reversal normal curvature when compared to the 2018 study. N o abnormal marrow signal. A INDIVIDUAL LEVELS: C2-3: No disc herniation nor central canal stenosis. No foraminal stenosis. No facet arthropathy. C3-4: No disc herniation nor central canal stenosis.No significant facet arthropathy. No foraminal st enosis. C4-5: No disc herniation nor central canal stenosis.No facet arthropathy. No foraminal stenosis C5-6: There is mild-moderate disc space narrowing. Posteriorly there is some annular bulging bilater ally and there are bilateral Luschka joint osteophyte-disc complexes, slightly larger on the left maddison e. This has slightly increased in size. There is mild effacement of the anterior thecal sac but not the spinal cord. AP measurement of the canal at this level is 11 mm. There is some annular bulging into left exiting neural foramen which impinges upon the exiting left-s ided nerve root at this level. Lesser amount of the same seen on the right side with mild right-side d foraminal stenosis at this level. There is no facet arthropathy the foraminal stenosis C6-7: Mild disc height loss and disc signal loss when compared to 2018 and mild anterior osseous nakul ing. Posteriorly there is symmetrical annular bulging which was not previously present in 2018. How ever, there is no focal disc herniation. Central canal dimensions are within normal limits. There i s no significant facet arthropathy at this level. On the left side there is mild annular bulging int o the exiting left neural foramen but significantly less than is evident at the left C5-6 neural fora men. There is no prominent foraminal stenosis on the left side at this level. On the right side at this level there is also only mild annular bulging with minimal foraminal stenosis. C7-T1: No disc herniation nor central canal stenosis. No facet arthropathy.No foraminal stenosis. IMPRESSION: 1. Compared to the prior MRI scan of June 2017 there is mild further progression of degenerative dis c disease findings at C5-6 level as described above. The most significant progression at this level appears to be at the level of the exiting left neural foramen where the annular bulging into the exit ing left neural foramen causes significant compression upon the anterior aspect of the exiting nerve root; in affect an element of left-sided foraminal stenosis. There are no degenerative changes in th e left facet joint at this level. Lesser amount of similar finding seen in the opposite-right exitin g neural foramen at this level. 2. Mild progression of degenerative disc disease at C6-7 level also noted but without significant dis c herniation, central canal stenosis, nor significant foraminal stenosis at this level. 3. No evidence of abnormal signal in the cervical spinal cord. No evidence of focal cord swelling no r atrophy. DATA REPOSITORY:
== END 2024-05-06 02:26 ==
PROVIDERS: PCP Nurse Practitioner Family; Visit Provider Nurse Practitioner Family
DX: M50.022 Cervical disc disorder at C5-C6 level with myelopathy (principal); M99.61 Osseous and subluxation stenosis of intervertebral foramina of cervical region
CPT/HCPCS: 72141

== ENCOUNTER 2024-05-20 10:09 | Outpatient (REF) | payer OTHER, SELFPAY ==
[2024-05-20 15:52] LABS: Abs Immature Grans 0.02 10^3/uL (0.0-0.06); Absolute Basophil Count 0.03 10^3/uL (0.0-0.2); Absolute Lymphocyte Count 2.02 10^3/uL (1.2-3.4); Absolute Monocyte Count 0.26 10^3/uL (0.1-0.8); Absolute Neutrophil Count 3.55 10^3/uL (1.2-6.7); Basophils % 0.5 %; Eosinophils % 3.3 %; HCT 44.6 % (36.0-46.0); HGB 15.2 g/dL (11.2-15.7); Immature Grans % 0.3 %; Lymphocytes % 33.2 %; MCH 29.9 pg (27.0-33.0); MCHC 34.1 % (32.0-36.0); MCV 88 fL (80-95); MPV 9.5 fL (8.0-11.0); Monocytes % 4.3 %; Neutrophils % 58.4 %; Platelet Count 291 10^3/uL (130-400); RBC 5.08 10^6/uL (3.93-5.22); RDW 11.7 % (11.7-14.6); RDW-SD 37.8 fL; WBC 6.08 10^3/uL (4.4-10.8)
[2024-05-20 17:40] LABS: ALT 23 U/L (14-59); AST 14 U/L (15-37); Albumin 3.9 g/dL (3.4-5.0); Alkaline Phosphatase 60 U/L (46-116); Anion Gap 6.7 mmol/L (3-11); BUN 11 mg/dL (7-18); Bilirubin, Total 0.63 mg/dL (0.2-1.0); CO2 28.3 mmol/L (21.0-32.0); Calcium 9.4 mg/dL (8.5-10.1); Chloride 107 mmol/L (98-107); Estimated GFR 72.58 (mL/min/1.73m2); Glucose 98 mg/dL (74-106); Lipase 28 U/L (<78); Potassium 4.4 mmol/L (3.5-5.1); Sodium 142 mmol/L (136-145); Total Protein 6.8 g/dL (6.4-8.2)
== END 2024-05-20 10:10 | disposition home or self-care (01) ==
LOC: NCHCN 10:09
PROVIDERS: PCP Nurse Practitioner Family; Visit Provider Family Medicine
DX: K30 Functional dyspepsia (principal)
CPT/HCPCS: 80053; 83690; 85025

== ENCOUNTER 2024-07-23 00:58 | Outpatient (CLI) | payer OTHER, SELFPAY ==
--- NOTE | 2024-07-23 | DI.RAD_ITS ---
Exam(s) XR HIP RT COMPLETE AP PELVIS EXAM: XR HIP RT COMPLETE AP PELVIS CLINICAL HISTORY: RT HIP PAIN,M25.551. TECHNIQUE: 2D digital imaging was performed. Two views COMPARISON: No exams were available for comparison FINDINGS: BONES: No acute fracture is present. No bony destructive lesion is seen. JOINTS: No dislocation present. The hip joint spaces are maintained. There is minimal acetabular s purring. The SI joints and pubic symphysis are unremarkable. SOFT TISSUE: Normal. IMPRESSION: No acute abnormality. DATA REPOSITORY: RADIATION DOSE DELIVERED:
== END 2024-07-23 01:18 ==
LOC: DI 00:59
PROVIDERS: PCP Nurse Practitioner Family; Visit Provider Nurse Practitioner Family
DX: M25.551 Pain in right hip (principal)
CPT/HCPCS: 73502

== ENCOUNTER 2024-09-30 01:57 | Outpatient (CLI) | payer OTHER, SELFPAY ==
--- NOTE | 2024-09-30 06:30 | DI.MRI_ITS ---
Exam(s) MR LOWER JOINT RT WO EXAM: MR LOWER JOINT RT WO CLINICAL HISTORY: RT HIP PAIN,FEMORAL ACETABULAR IMPINGEMENT,M25.551,M25.859 TECHNIQUE: Multiplanar multisequence MRI of right hip was performed COMPARISON: CR XR HIP RT COMPLETE AP PELVIS from 07/23/2024 FINDINGS: Bones: There is no evidence of a fracture or avascular necrosis. There is mild narrowing of the superior joint space of the hips bilaterally. There is mild subchondral edema in the acetabuli bilaterally. No significant joint effusion is present. There is hyperintense signal seen in the base of the posterior superior labrum which may represent degeneration or tear. Musculotendinous structures: There is mild hyperintensities seen of the gluteus medius tendon consistent with tendinosis. Intrapelvic structures demonstrate no significant abnormality. Pelvis: There is an IUD present in the uterus. There are several myometrial masses present consistent with fibroids. The largest intramural fibroid is seen anteriorly and measures 3.4 x 3.1 cm. There is a soft tissue mass to the right of the uterus which is isointense to the intramural uterine fibroids and measures 4.8 x 4.5 cm. This may represent a subserosal or pedunculated fibroid. (Series 9001, image 46). The ovaries are visualized and are unremarkable. IMPRESSION: 1. Sinus suspicious for the tear or degeneration of the posterior superior labrum. 2. Right gluteus medius tendinosis. 3. Fibroid uterus. 4. 4.8 x 4.5 cm mass to the right of the uterus isoechoic to the intramural fibroids. It appears to arise from the uterus and likely reflects a subserosal or pedunculated fibroid. Pelvic ultrasound follow-up is recommended. DATA REPOSITORY:
== END 2024-09-30 02:17 ==
LOC: DI 01:57
PROVIDERS: PCP Nurse Practitioner Family; Visit Provider Student in an Organized Health Care Education/Training Program
DX: M25.551 Pain in right hip (principal); M25.851 Other specified joint disorders, right hip
CPT/HCPCS: 73721

== ENCOUNTER 2024-10-08 17:06 | Outpatient (REF) | payer OTHER, SELFPAY | END 2024-10-08 17:07 | disposition home or self-care (01) | LOC: LBN 17:06 | PROVIDERS: PCP Nurse Practitioner Family; Visit Provider Obstetrics & Gynecology | DX: Z12.4 Encounter for screening for malignant neoplasm of cervix (principal) | CPT/HCPCS: 88142; 87624 ==

== ENCOUNTER → 2025-02-01 01:29 | Outpatient (CLI) | payer OTHER, SELFPAY ==
--- NOTE | 2025-02-01 | DI.MAMMO_ITS ---
Exam(s) MAMMO SCREENING EXAM: MAMMO SCREENING CLINICAL HISTORY: SCREENING, FAM HX BREAST CA Z80.3 TECHNIQUE: Mammograms were interpreted according to the usual protocol including computer analysis with CAD system, tomosynthesis and C-view imaging. COMPARISON: 2022 and 2023 FINDINGS: The breasts are composed of scattered fibroglandular densities, Breast Density category B. No suspicious masses or suspicious microcalcifications are seen. No skin thickening or abnormal axillary lymph nodes are seen. There has been no significant change from prior exams. IMPRESSION: BI-RADS Category 1, Negative mammogram Yearly screening mammography is recommended. Breast Density - Category B - There are scattered areas of fibroglandular density. Breast density Category C or D implies that the patient has dense breast tissue. Dense breast tissue can make it harder to find cancer on a mammogram. Dense breast tissue is also associated with an increased risk of breast cancer. This information about the result of the mammogram report was provided to the patient to raise their awareness. Use this report when you speak with the patient about their risks for breast cancer, which includes their family history. At that time, you may recommend additional screening tests (Ultrasound or MRI) as these tests may add significant information. A negative radiographic report should not delay biopsy if a dominant or clinically suspicious mass is present. Up to ten percent of cancers are not identified on mammography. A negative report may reinforce clinical impression. Adenosis and dense breasts may obscure an underlying neoplasm. False positive reports average 6 to 10%. Patient will receive a letter notifying them of these results.
== END ==
LOC: DI 01:29
PROVIDERS: PCP Nurse Practitioner Family; Visit Provider Nurse Practitioner Family
DX: Z80.3 Family history of malignant neoplasm of breast (principal); Z12.31 Encounter for screening mammogram for malignant neoplasm of breast; R92.323 Mammographic fibroglandular density, bilateral breasts
CPT/HCPCS: 77063; 77067